=== PATIENT | male | born 1970 | race Two or more races ===

== ENCOUNTER 2018-03-08 10:01 | Emergency (ER) | payer SELFPAY ==
[~2018-03-08] VITALS: Ht 167.6 cm; Wt 90.7 kg
[~2018-03-08 10:01] MED LIST: BACTRIM DS TAB1 EAC1 ORAL; CEPHALEXIN500 MG PO; NKM
[2018-03-08 10:33] VITALS: BP 162/97
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
[2018-03-08] MEDS ORDERED: Tetracaine 0.5% Opth 4ml Soln RIGHT EYE ONE (11:00)
[2018-03-08] MEDS ORDERED: Fluorescein Strips RIGHT EYE ONE (11:00)
[2018-03-08] MEDS ORDERED: IBUPROFEN600 MG ORAL (11:44)
[2018-03-08] MEDS ORDERED: BACITRACIN ZIN1 EACH TOPIC (11:49)
[2018-03-08] MEDS ORDERED: Bacitracin Oint UD TOPIC ONE (12:00)
[2018-03-08 12:02] VITALS: BP 162/97
--- NOTE | 2018-03-08 12:26 | Diagnostic Imaging Report ---
Indication: Trauma and facial pain Technique: Continuous helical transaxial imaging of the maxillofacial structures obtained without intravenous contrast administration. Coronal 2-D reformats were also obtained. Study obtained in a Siemens sensation [address] Automatic Exposure Control was utilized. Total Dose length Product (DLP): 530.[address] Dose Index Volume (CTDIvol): 28.19 mGy Comparison: None Findings: There is no evidence of an acute fracture. Paranasal sinuses and mastoids are clear. Soft tissues are unremarkable. TMJs are unremarkable. Pterygoid plates are intact. The orbits appear normal bilaterally. There is no radiopaque foreign body identified. Globes appear symmetric. IMPRESSION: Negative maxillofacial CT The CT scanner at [facility] is accredited by the [employer] and the scans are performed using dose optimization techniques as appropriate to a performed exam including Automatic Exposure control.
== END 2018-03-08 12:03 | disposition home or self-care (01) ==
LOC: EMR 11:15
DX: S00.83XA Contusion of other part of head, initial encounter (principal); S00.11XA Contusion of right eyelid and periocular area, initial encounter; W22.8XXA Striking against or struck by other objects, initial encounter; Y92.9 Unspecified place or not applicable
CPT/HCPCS: 70480; 99283

== ENCOUNTER 2019-10-07 09:32 | Emergency (ER) | payer MEDICAID, OTHER ==
[~2019-10-07] VITALS: Ht 165.1 cm; Wt 86.2 kg
[~2019-10-07 09:32] MED LIST changes: +BACITRACIN ZIN1 EACH TOPIC; +IBUPROFEN600 MG ORAL
[2019-10-07 09:37] VITALS: BP 150/90
--- NOTE | 2019-10-07 10:08 | Emergency Room Report ---
History of Present Illness General Chief Complaint: Skin Rash/Abscess Source: Patient Present Illness HPI Disclaimer: Please note that this report is being documented using DRAGON technology. This can lead to erroneous entry secondary to incorrect interpretation by the dictating instrument. HPI: 49-year-old male presents for evaluation of perirectal pain and swelling. Patient has a history of perirectal abscess and is a diabetic. Noticed a growing lump over the inside of the right buttock beginning yesterday. Tender to palpation, warm to the touch. Denies skin breakdown, purulent drainage. Denies changes in bowel habits. States he had a previous perirectal abscess which was drained in the emergency department several years ago. No recent antibiotic use. Denies fever, chills, vomiting. 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 EOMI. Resp: Normal work of breathing /rectal: There is a firm, tender and erythematous mass over the inner aspect of the right gluteus at the 2 o'clock position. No active drainage, bleeding Skin: Intact. No abrasions, laceration or rash over the exposed skin MSK: Normal tone and bulk. Moving all extremities. No obvious deformity. Neuro: Awake and alert. Mentating appropriately Medical Decision Making ER Course 49-year-old male presents for evaluation of a palpable and painful mass in the right buttock. Concern for perirectal abscess, deep space abscess, fistula, pilonidal cyst. Given the patient's extensive history of prior abscesses labs and CT scan were obtained. Labs are returned within normal limits. No significant findings on CT scan. Dr. Pyle from the surgical department evaluated the patient and performed a bedside incision and drainage expressing significant pus supporting diagnosis of perirectal abscess. The patient tolerated procedure well will be discharged on Bactrim. We will follow-up with his PMD and Dr. Pyle on an outpatient basis. We discussed reasons to return to the emergency department. He understands and agrees with this treatment plan. Laboratory Tests Test 10/07/19 10:10 White Blood Count 8.9 K/UL (4.8-10.8) Red Blood Count 4.69 M/UL (4.70-6.10) L Hemoglobin 15.7 G/DL (14.2-18.0) Hematocrit 41.3 % (42.0-52.0) L Mean Corpuscular Volume 88 FL (80-99) Mean Corpuscular Hemoglobin 33.3 PG (27.0-31.0) H Mean Corpuscular Hemoglobin Concent 36.8 G/DL (32.0-36.0) H Red Cell Distribution Width 10.0 % (11.6-14.8) L Platelet Count 241 K/UL (150-450) Mean Platelet Volume 5.8 FL (6.5-10.1) L Neutrophils (%) (Auto) % (45.0-75.0) Lymphocytes (%) (Auto) % (20.0-45.0) Monocytes (%) (Auto) % (1.0-10.0) Eosinophils (%) (Auto) % (0.0-3.0) Basophils (%) (Auto) % (0.0-2.0) Differential Total Cells Counted 100 Neutrophils % (Manual) 81 % (45-75) H Lymphocytes % (Manual) 12 % (20-45) L Monocytes % (Manual) 6 % (1-10) Eosinophils % (Manual) 1 % (0-3) Basophils % (Manual) 0 % (0-2) Band Neutrophils 0 % (0-8) Platelet Estimate Adequate Platelet Morphology Normal Red Blood Cell Morphology Normal Sodium Level 134 MMOL/L (136-145) L Potassium Level 3.9 MMOL/L (3.5-5.1) Chloride Level 96 MMOL/L (98-107) L Carbon Dioxide Level 26 MMOL/L (21-32) Anion Gap 12 mmol/L (5-15) Blood Urea Nitrogen 10 mg/dL (7-18) Creatinine 1.0 MG/DL (0.55-1.30) Estimated Glomerular Filtration Rate > 60 mL/min (>60) Glucose Level 291 MG/DL (74-106) H Calcium Level 8.9 MG/DL (8.5-10.1) CT/MRI/US Diagnostic Results CT/MRI/US Diagnostic Results : Impression Procedure: CT Abdomen Pelvis w/Contrast EXAM: CT Abdomen and Pelvis With Intravenous Contrast CLINICAL HISTORY: ABSCESS TECHNIQUE: Axial computed tomography images of the abdomen and pelvis with intravenous contrast. CTDI is 9.6 mGy and DLP is 492.6 mGy-cm. One or more of the following dose reduction techniques were used: automated exposure control, adjustment of the mA and/or kV according to patient size, use of iterative reconstruction technique. COMPARISON: None FINDINGS: Lung bases: Unremarkable. No mass. No consolidation. ABDOMEN: Liver: Hepatic steatosis. Hepatomegaly. Gallbladder and bile ducts: Unremarkable. No calcified stones. No ductal dilation. Pancreas: Unremarkable. No mass. No ductal dilation. Spleen: Unremarkable. No splenomegaly. Adrenals: Unremarkable. No mass. Kidneys and ureters: Nonspecific right greater than left perinephric fat stranding. Minimal fullness of the right renal collecting system. No obstructing stone identified. Superimposed infection or recently passed stone is not excluded. Small hypodensity in the inferior right kidney is too small to definitively characterize. Stomach and bowel: Evaluation of the stomach is limited by under distention. No mucosal thickening. PELVIS: Appendix: Normal appendix. Bladder: Distended bladder. No significant bladder wall thickening or stone. Reproductive: Unremarkable as visualized. ABDOMEN and PELVIS: Intraperitoneal space: Unremarkable. No free air. No significant fluid collection. Bones/joints: Mild degenerative changes of the spine. No acute fracture. No dislocation. Soft tissues: Unremarkable. Vasculature: Mild atherosclerotic changes of the vasculature. No aortic aneurysm or dissection. Lymph nodes: Unremarkable. No enlarged lymph nodes. IMPRESSION: Nonspecific right greater than left perinephric fat stranding. Minimal fullness of the right renal collecting system. No obstructing stone identified. Superimposed infection or recently passed stone is not excluded. Dictated By: Vitaliy Allen MD Electronically Signed By: Vitaliy Allen MD Signed Date/Time 10/07/19 [id number] CC: Emanuel Del Rio MD Last Vital Signs Date Time Temp Pulse Resp B/P (MAP) Pulse Ox O2 Delivery O2 Flow Rate FiO2 5/30/20 09:37 98.1 94 19 150/90 (110) 96 Room Air Disposition: HOME, SELF-CARE Condition: Stable Scripts Trimethoprim/Sulfamethoxazole 160/800* (BACTRIM DS TABLET*) 1 Each Tablet 1 TAB ORAL Q12H, #14 TAB 0 Refills Prov: Emanuel Del Rio MD 10/07/19 Referrals: NON PHYSICIAN (PCP) Emanuel Del Rio MD October 07, 2019 10:08
[2019-10-07] MEDS ORDERED: Morphine Sulfate 4mg/ml Inj (IV USE ONLY) IVP ONE (10:15)
[2019-10-07] MEDS ORDERED: Omnipaque-300 100ml vial INJ PRN (10:15)
[2019-10-07 10:38] LABS: HEMATOCRIT 41.3 % (42.0-52.0); HEMOGLOBIN 15.7 G/DL (14.2-18.0); MEAN CORPUSCULAR VOLUME 88 FL (80-99); PLATELET COUNT 241 K/UL (150-450); RED BLOOD COUNT 4.69 M/UL (4.70-6.10); WHITE BLOOD COUNT 8.9 K/UL (4.8-10.8)
[2019-10-07 10:49] LABS: ANION GAP 12 mmol/L (5-15); BLOOD UREA NITROGEN 10 mg/dL (7-18); CALCIUM 8.9 MG/DL (8.5-10.1); CARBON DIOXIDE 26 MMOL/L (21-32); CHLORIDE 96 MMOL/L (98-107); POTASSIUM 3.9 MMOL/L (3.5-5.1); SODIUM 134 MMOL/L (136-145)
--- NOTE | 2019-10-07 11:36 | Diagnostic Imaging Report ---
EXAM: CT Abdomen and Pelvis With Intravenous Contrast CLINICAL HISTORY: ABSCESS TECHNIQUE: Axial computed tomography images of the abdomen and pelvis with intravenous contrast. CTDI is 9.6 mGy and DLP is 492.6 mGy-cm. One or more of the following dose reduction techniques were used: automated exposure control, adjustment of the mA and/or kV according to patient size, use of iterative reconstruction technique. COMPARISON: None FINDINGS: Lung bases: Unremarkable. No mass. No consolidation. ABDOMEN: Liver: Hepatic steatosis. Hepatomegaly. Gallbladder and bile ducts: Unremarkable. No calcified stones. No ductal dilation. Pancreas: Unremarkable. No mass. No ductal dilation. Spleen: Unremarkable. No splenomegaly. Adrenals: Unremarkable. No mass. Kidneys and ureters: Nonspecific right greater than left perinephric fat stranding. Minimal fullness of the right renal collecting system. No obstructing stone identified. Superimposed infection or recently passed stone is not excluded. Small hypodensity in the inferior right kidney is too small to definitively characterize. Stomach and bowel: Evaluation of the stomach is limited by under distention. No mucosal thickening. PELVIS: Appendix: Normal appendix. Bladder: Distended bladder. No significant bladder wall thickening or stone. Reproductive: Unremarkable as visualized. ABDOMEN and PELVIS: Intraperitoneal space: Unremarkable. No free air. No significant fluid collection. Bones/joints: Mild degenerative changes of the spine. No acute fracture. No dislocation. Soft tissues: Unremarkable. Vasculature: Mild atherosclerotic changes of the vasculature. No aortic aneurysm or dissection. Lymph nodes: Unremarkable. No enlarged lymph nodes. IMPRESSION: Nonspecific right greater than left perinephric fat stranding. Minimal fullness of the right renal collecting system. No obstructing stone identified. Superimposed infection or recently passed stone is not excluded.
--- NOTE | 2019-10-07 12:26 | Consultation ---
History of Present Illness General Date patient seen: October 07, 2019 Reason for Hospitalization: Skin Rash/Abscess Present Illness HPI This is a 49-year-old male with history of perirectal abscess that is required incision and drainage presented to [facility] ED complaining of worsening perirectal pain on the right side for 3 days unable to have bowel movement without significant pain difficulty walking difficulty sitting. No drainage. No nausea vomiting fever chills. In ED noted to have labs as below and imaging CT noted. Surgery called tonight and assist with care. Patient seen, patient evaluate, chart reviewed. Patient identified to have a large right perirectal abscess Allergies: Coded Allergies: No Known Allergies (Unverified , 08/24/12) COVID-19 Screening Contact w/high risk pt: No Recent Travel to affected area: No Experienced COVID-19 symptoms?: No Medication History Scheduled Bacitracin Zinc* (Bacitracin Zinc*), 1 APPLIC TOPIC THREE TIMES A DAY Cephalexin* (Keflex*), 500 MG PO Q6H No Known Medications* (NKM - No Known Medications*), 0 ., (Reported) Trimethoprim/Sulfamethoxazole 160/800* (Bactrim Ds Tablet*), 1 TAB ORAL TWICE A DAY Scheduled PRN Ibuprofen (Motrin), 600 MG ORAL Q8H PRN for For Pain Ibuprofen (Motrin), 600 MG ORAL Q8H PRN for For Pain Patient History History Provided By: Patient, Medical Record, PMD Healthcare decision maker Resuscitation status Advanced Directive on File Past Medical/Surgical History Past Medical/Surgical History: (1) Perirectal abscess (2) Contusion of leg (3) Contusion of leg (4) Facial contusion Review of Systems Review of Symptoms General ROS: no weight loss or fever Psychological ROS: no depression or mood changes, no memory loss Ophthalmic ROS: no visual changes or eye irritation ENT ROS: no nasal congestion, hearing loss, dizziness Allergy and Immunology ROS: no allergic symptoms or urticaria Hematological and Lymphatic ROS: no swollen glands, unusual bleeding or bruising Endocrine ROS: no polyuria, polydipsia, weight changes, temperature intolerance Respiratory ROS: no cough, shortness of breath, or wheezing Cardiovascular ROS: no chest pain or dyspnea on exertion Gastrointestinal ROS: denies abdominal pain, bright red blood in stool. Musculoskeletal ROS: no myalgias or arthralgias Neurological ROS: no TIA or stroke symptoms Dermatological ROS: no new or changing skin lesions, rashes or pruritis Physical Exam Physical Exam General appearance: alert, cooperative, no distress, appears stated age Head: Normocephalic, without obvious abnormality, atraumatic Eyes: conjunctivae/corneas clear. PERRL, EOM's intact. Fundi benign Throat: Lips, mucosa, and tongue normal. Teeth and gums normal Neck: supple, symmetrical, trachea midline, no adenopathy, thyroid: not enlarged, symmetric, no tenderness/mass/nodules, no carotid bruit and no JVD Lungs: clear to auscultation bilaterally Heart: regular rate and rhythm, S1, S2 normal, no murmur, click, rub or gallop Abdomen: soft, non-tender. Bowel sounds normal. No masses, no organomegaly Extremities: extremities normal, atraumatic, no cyanosis or edema Pulses: 2+ and symmetric Skin: Skin color, texture, turgor normal. No rashes or lesions Neurologic: Grossly normal rectal large right perirectal abscess fluctuant no drainage Tender Last 24 Hour Vital Signs Date Time Temp Pulse Resp B/P (MAP) Pulse Ox O2 Delivery O2 Flow Rate FiO2 10/07/19 09:37 98.1 94 19 150/90 (110) 96 Room Air 10/07/19 09:37 98.1 94 19 150/90 96 Room Air Laboratory Tests Test 10/07/19 10:10 White Blood Count 8.9 K/UL (4.8-10.8) Red Blood Count 4.69 M/UL (4.70-6.10) L Hemoglobin 15.7 G/DL (14.2-18.0) Hematocrit 41.3 % (42.0-52.0) L Mean Corpuscular Volume 88 FL (80-99) Mean Corpuscular Hemoglobin 33.3 PG (27.0-31.0) H Mean Corpuscular Hemoglobin Concent 36.8 G/DL (32.0-36.0) H Red Cell Distribution Width 10.0 % (11.6-14.8) L Platelet Count 241 K/UL (150-450) Mean Platelet Volume 5.8 FL (6.5-10.1) L Neutrophils (%) (Auto) % (45.0-75.0) Lymphocytes (%) (Auto) % (20.0-45.0) Monocytes (%) (Auto) % (1.0-10.0) Eosinophils (%) (Auto) % (0.0-3.0) Basophils (%) (Auto) % (0.0-2.0) Differential Total Cells Counted 100 Neutrophils % (Manual) 81 % (45-75) H Lymphocytes % (Manual) 12 % (20-45) L Monocytes % (Manual) 6 % (1-10) Eosinophils % (Manual) 1 % (0-3) Basophils % (Manual) 0 % (0-2) Band Neutrophils 0 % (0-8) Platelet Estimate Adequate Platelet Morphology Normal Red Blood Cell Morphology Normal Sodium Level 134 MMOL/L (136-145) L Potassium Level 3.9 MMOL/L (3.5-5.1) Chloride Level 96 MMOL/L (98-107) L Carbon Dioxide Level 26 MMOL/L (21-32) Anion Gap 12 mmol/L (5-15) Blood Urea Nitrogen 10 mg/dL (7-18) Creatinine 1.0 MG/DL (0.55-1.30) Estimat Glomerular Filtration Rate > 60 mL/min (>60) Glucose Level 291 MG/DL (74-106) H Calcium Level 8.9 MG/DL (8.5-10.1) Height (Feet): 5 Height (Inches): 5.00 Weight (Pounds): 190 Medications Current Medications Medications (Trade) Dose Ordered Sig/Justo Route PRN Reason Start Time Stop Time Status Last Admin Dose Admin Iohexol (OMNIPAQUE-300 100ml) 100 ml NOW PRN INJ Radiology Procedure 10/07/19 10:15 10/09/19 10:03 Assessment/Plan Problem List: (1) Perirectal abscess Assessment & Plan: 49-year-old male with large right perirectal abscess Tender, fluctuant, erythema Currently no drainage Has had history of this in the past has not had follow-up for work-up for potential fistula Ongoing for about 3 days as per patient. Difficulty walking difficulty sitting difficulty bowel movement due to pain Recommend incision and drainage Consent obtained from patient See procedure report Care instructions given in detail to patient sits baths shower dressings packing gauze tape instructions are given Reviewed findings and care plan with patient Okay to discharge from surgical standpoint outpatient follow-up Thank you for let me participate in patient's care ICD Codes: K61.1 - Rectal abscess SNOMED: [id number] Sam Pyle October 07, 2019 12:26
[2019-10-07] MEDS ORDERED: BACTRIM DS TAB1 EAC1 ORAL (12:28)
--- NOTE | 2019-10-07 12:28 | Operative Note - PDOC ---
Operative Note Operative Note Date of Operation/Procedure: October 07, 2019 Pre-op Diagnosis: Perirectal abscess Procedure: Right perirectal abscess incision and drainage Post-op Diagnosis: same as pre-op Surgeon: Sam Pyle MD Anesthesia: local - Lidocaine 1% with epinephrine Specimen: yes Complications: none Condition: stable Estimated Blood Loss: minimal Drains: none Implant(s) used?: No Indications for Procedure Incision drainage indicated recommended consent obtained from patient procedure performed at bedside in the emergency department Description of Procedure Patient was made comfortable in the right lateral decubitus position the emergency department. The perirectal area was prepped draped in the same surgical fashion. A large fluctuant tender nondraining right posterior perirectal abscess was clearly identified just lateral to the anus. Local anesthetic 1% lidocaine with epinephrine was infiltrated in the proposed skin incision. A cruciate skin incision was made using a fresh #15 scalpel. Upon incision a significant amount of purulent fluid was evacuated approximately 20 cc. Once pus was evacuated the wound cavity was irrigated with normal saline until clear. Packing dressings were applied. Patient taught procedure well. Care instructions given in detail as well as follow-up for patient. Sam Pyle October 07, 2019 12:28
[2019-10-07 12:48] VITALS: BP 133/85
== END 2019-10-07 12:48 | disposition home or self-care (01) ==
LOC: EMR 09:53
DX: K61.1 Rectal abscess (principal); E11.9 Type 2 diabetes mellitus without complications; Z79.899 Other long term (current) drug therapy
CPT/HCPCS: 36415; 46040; 74177; 80048; 85007; 85025; 96374; J2270; Q9967; Z7502; 99284